=== PATIENT | male | born 1965 | race Caucasian/White ===

== ENCOUNTER 2018-12-15 11:55 | Day surgery (SDC) | payer OTHER ==
[~2018-12-15] VITALS: Ht 180.3 cm; Wt 93.4 kg
== END 2018-12-15 14:17 | disposition home or self-care (01) ==
LOC: ORSCSDS 11:55
PROVIDERS: Internal Medicine Gastroenterology
PROC: 0DBL8ZX Excision of Transverse Colon, Via Natural or Artificial Opening Endoscopic, Diagnostic (ICD-10-PCS; principal; 2018-12-15 13:30)
DX: Z12.11 Encounter for screening for malignant neoplasm of colon (principal); D12.3 Benign neoplasm of transverse colon; K57.30 Diverticulosis of large intestine without perforation or abscess without bleeding
CPT/HCPCS: 88305; J2704; J7120

== ENCOUNTER 2024-10-25 08:08 | Day surgery (SDC) | payer OTHER ==
[2024-10-25] VITALS (17 sets, daily range): BP systolic 107–125; BP diastolic 73–92
[~2024-10-25] VITALS: Ht 180.3 cm; Wt 94.9 kg
[~2024-10-25 08:08] MED LIST: Lactated Ringer's 1,000 ML IV SCH
--- NOTE | 2024-10-25 09:03 | NUR ---
Ambulatory in Day Surgery Patient confirms NPO status and agrees with scheduled surgery. Patient States Post-Procedure ride home has been arranged. Pre-Op teaching done. Pt verbalizes understanding. History, Chart, Medications and Allergies reviewed before start of procedure. PT REPORTS HE DID NOT FINISH ALL OF HIS PREP BUT WAS ALL CLEAR
[2024-10-25] MEDS ORDERED: propofoL 20 ML IV ONE (09:26)
--- NOTE | 2024-10-25 09:32 | NUR ---
10/25/24 0932 Marianna Graves CONFIRMED AND REVIEWED H&P, MEDCICATIONS, ALLERGIES, MEDICAL HISTORY, RESPIRATORY HISTORY, VITAL SIGNS, 3-LEAD EKG, CONSENTS, AND PHYSICIAN ORDERS. PATIENT CONFIRMS NPO STATUS AND AGREES WITH SCHEDULED PROCEDURE. MONITOR INTACT WITH CONTINUOUS PULSE OXIMETRY, CAPNOGRAPHY, 3-LEAD EKG, INTERMITTENT BP. SUPPLEMENTAL O2 TO BE TITRATED THROUGHOUT PROCEDURE TO MAINTAIN O2 SATURATION ABOVE 90%. PATIENT DETERMINED TO BE ASA APPROPRIATE FOR PROPOFOL SEDATION PRIOR TO START OF PROCEDURE BY DR. VALENCIA.
[2024-10-25] MEDS ORDERED: Midazolam HCl 1MG / ML 2ML Vial ONE (09:35)
--- NOTE | 2024-10-25 10:35 | NUR ---
Discharge instructions reviewed with patient. Patient verbalizes understanding. Copy given to patient to take home. Patient States Post-Procedure ride home has been arranged. Discharged via wheelchair to private car for ride home.
--- NOTE | 2024-10-25 10:36 | NUR ---
PT REFUSED TO GO VIA WC. PT WALKED OUT OF DEPARTMENT WITH DISCHARGE VOLUNTEER.
== END 2024-10-25 10:37 | disposition home or self-care (01) ==
LOC: ORSCMMR 08:08 → ORD 09:00 → ORSCMMR 10:37
PROVIDERS: Internal Medicine Gastroenterology
PROC: 0DBH8ZX Excision of Cecum, Via Natural or Artificial Opening Endoscopic, Diagnostic (ICD-10-PCS; principal; 2024-10-25 09:00)
PROC: 0DBM8ZX Excision of Descending Colon, Via Natural or Artificial Opening Endoscopic, Diagnostic (ICD-10-PCS; principal; 2024-10-25 09:00)
PROC: 0DBC8ZX Excision of Ileocecal Valve, Via Natural or Artificial Opening Endoscopic, Diagnostic (ICD-10-PCS; principal; 2024-10-25 09:00)
DX: Z12.11 Encounter for screening for malignant neoplasm of colon (principal); Z86.0101 Personal history of adenomatous and serrated colon polyps; K63.5 Polyp of colon
CPT/HCPCS: 88305; J2250; J2704; J7120